=== PATIENT | male | born 1985 | race Caucasian/White ===

== ENCOUNTER 2018-06-02 10:22 | Emergency (ER) | payer OTHER, SELFPAY ==
[2018-06-02 10:23] VITALS: BP 120/71; PULSE 86; RESP 18; TEMP 36.6; O2SAT 98; BMI 20.5
--- NOTE | 2018-06-02 10:45 | RAD_ITS ---
STUDY: X-RAY CHEST REASON FOR EXAM: Male, 33 years old. Two-month history of cough. TECHNIQUE: PA and lateral views of the chest. COMPARISON: None. FINDINGS: Hyperinflation. The lungs are clear. There is no demonstrated pleural abnormality. Normal size heart. Normal mediastinum and odilia. Normal visualized pulmonary arteries. Normal visualized aortic arch and descending thoracic aorta. Normal visualized thoracic spine. Normal visualized ribs, clavicles, and shoulders. There is no demonstrated abnormality of the visualized soft tissue structures of the upper abdomen. RAD/Chest PA and Lateral IMPRESSION: Hyperinflation. Electronically Signed: Miguelito Hardy MD at 11:16 EST Tel [phone], Service support ,
[2018-06-02] MEDS: predniSONE 20 MG Tablet 60 MG PO (10:49)
[2018-06-02 11:06] VITALS: PULSE 83; RESP 19
[2018-06-02] MEDS: Ipratropium/Albuterol Sulfate 3 ML AMPUL.NEB INHALATION (11:06)
--- NOTE | 2018-06-02 12:19 | ED.DCSUM_ITS ---
- ER Visit Summary Date of Service: 06/02/18 Chief Complaint: Cough History of Present Illness: The patient is a 33 M who presents with a cough that has been getting worse for several months. It is nonproductive. He came in today because the cough kept him up all night last night. Patient is a smoker. Denies any other history of lung disease or chronic medical issues. Physical Examination: Afebrile and vital signs unremarkable. Alert and oriented. No acute distress. He has expiratory wheeze in all graham. Heart regular. Skin normal in color. Test Results: Chest x-ray showed no acute findings. Emergency Department Course and Treatment: Patient treated with DuoNeb and steroids. He feels better on reevaluation. Given the duration of his cough will treat with antibiotics. He received prescriptions for doxycycline, albuterol, Tessalon, and prednisone. Follow-up with primary care. Return for any new or worsening issues. Patient was not having any chest pain and has no history of blood clots. Treatment Plan: As above Disposition: Discharge Impression: 1. Cough 2. Bronchitis This note was generated with [employer] dictation software. It may contain incorrect words, spelling, and punctuation that were not noted in review of the chart prior to signing ED Disposition - Plan for ED Patient: Chief Complaint: Cough Referrals: Care Physician,No Primary [Primary Care Provider] -
--- NOTE | 2018-06-02 12:19 | ED.DEP ---
ED Disposition - Plan for ED Patient: Chief Complaint: Cough Instructions: ED Bronchitis Asthmatic Prescriptions: Albuterol Inhaler [Ventolin Hfa] 2 puff INHALATION Q4H PRN PRN #1 inhaler PRN Reason: Wheezing Benzonatate [Tessalon Perle] 200 mg PO TID PRN PRN #20 cap PRN Reason: Cough Prednisone 10 mg PO UD #33 tab Doxycycline 100 mg PO BID #20 cap Referrals: Donnell Staples DO [STAFF PHYSICIAN] -
[2018-06-02 12:29] VITALS: PULSE 100; RESP 16; O2SAT 97
== END 2018-06-02 12:30 | disposition home or self-care (01) ==
PROVIDERS: Emergency Provider Emergency Medicine
DX: J40 Bronchitis, not specified as acute or chronic (principal); F17.200 Nicotine dependence, unspecified, uncomplicated
CPT/HCPCS: 71046; 94640; 99283

== ENCOUNTER 2018-11-24 15:35 | Emergency (ER) | payer SELFPAY ==
[2018-11-24 15:36] VITALS: BP 145/95; PULSE 98; RESP 16; TEMP 37.2; O2SAT 98; BMI 20.9
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
[2018-11-24] MEDS: Diphth,Pertuss(Acell),Tet Vac 0.5 ML Vial IM (16:26)
[2018-11-24] MEDS: Cephalexin 250 MG Capsule 500 MG PO (16:26)
== END 2018-11-24 16:48 | disposition home or self-care (01) ==
LOC: ED 16:40
PROVIDERS: Emergency Provider Emergency Medicine
DX: S01.511A Laceration without foreign body of lip, initial encounter (principal); L08.9 Local infection of the skin and subcutaneous tissue, unspecified; Y09 Assault by unspecified means; Y93.9 Activity, unspecified; Y92.9 Unspecified place or not applicable; F17.200 Nicotine dependence, unspecified, uncomplicated
CPT/HCPCS: 90471; 90715; 99282

== ENCOUNTER 2019-07-22 10:40 | Emergency (ER) | payer SELFPAY ==
[2019-07-22 10:42] VITALS: BP 140/74; PULSE 95; RESP 17; TEMP 36.9; O2SAT 100; BMI 21.4
--- NOTE | 2019-07-22 11:03 | ED.DCSUM_ITS ---
- ER Visit Summary Date of Service: 07/22/19 Chief Complaint: Right lower jaw dental pain History of Present Illness: The patient is a 34 M reported additional lower jaw. He has had his upper teeth extracted and has dentures. Patient states the last couple days he has had pain in his right lower last molar and some mild swelling. Denies any fever or chills. Physical Examination: Young male no acute distress vital signs stable afebrile. H EENT exam reactive light extra motions are intact right TM normal. Mouth or mucosa moist and pink. He has very poor dentition in the lower jaw. Multiple missing teeth teeth all his teeth are decaying. Multiple cavities. The right last lower molar is very decayed with a cavity with gingival swelling. There is no abscess nothing to be drained. No trismus. No trouble breathing or swallowing. The floor of his mouth is unremarkable. There is no Manuel's angina. Upper dentition are dentures. Neck nontender. No facial or jaw swelling. No lymphadenopathy. Lungs clear to auscultation bilaterally.. Abdomen soft. Patient moving all 4 extremities. Neurologically is awake and alert. Test Results: None Emergency Department Course and Treatment: Patient be started on Pen-Vee K 500 4 times daily for 10 days. See a dentist soon as possible. Treatment Plan: Pen-Vee K 4 times daily. See dentist. Aleve or Tylenol for pain. Disposition: Discharge Impression: Dental decay and cavities with gingivitis This note was generated with [employer] dictation software. It may contain incorrect words, spelling, and punctuation that were not noted in review of the chart prior to signing ED Disposition - Plan for ED Patient: Referrals: Care Physician,No Primary [Primary Care Provider] -
--- NOTE | 2019-07-22 11:05 | ED.DEP ---
ED Disposition - Plan for ED Patient: Disposition: Home or Assisted Living Instructions: Dental Cavity, Dental Pain Prescriptions: Penicillin V Potassium 500 mg PO 4X/DAY #40 tab Prescription Printed Ondansetron [Zofran Odt] 4 mg PO Q8H PRN PRN #10 tab PRN Reason: Nausea Prescription Printed Additional Instructions: Antibiotic 1 pill 4 times a day. Aleve or Tylenol for pain. Zofran as needed for nausea. Follow-up and see a dentist as soon as possible.
[2019-07-22 11:15] VITALS: BP 140/74
[2019-07-22 11:16] VITALS: BP 140/74
== END 2019-07-22 11:29 | disposition home or self-care (01) ==
PROVIDERS: Emergency Provider Emergency Medicine
DX: K05.10 Chronic gingivitis, plaque induced (principal); K02.9 Dental caries, unspecified; Z72.0 Tobacco use
CPT/HCPCS: 99282